=== PATIENT | female | born 2005 | race Caucasian/White ===

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

== ENCOUNTER 2023-02-04 21:44 | Inpatient (IN) | payer MEDICAID ==
[~2023-02-04] VITALS: Ht 170.2 cm; Wt 81.9 kg
[~2023-02-04 21:44] MED LIST changes: +BENZ0.5T2 PO; -BENZ0.5T23 PO
[2023-02-04 22:21] LABS: HEMATOCRIT 39.1 % (36.0-47.0); HEMOGLOBIN 13.1 g/dl (12.0-15.5); MEAN CORPUSCULAR HGB CONC 33.5 g/dl (32.0-36.5); MEAN CORPUSCULAR VOLUME 89.5 fl (80.0-96.0); PLATELET COUNT, AUTOMATED 361 10^3/uL (150-450); RED BLOOD COUNT 4.37 10^6/uL (4.00-5.40); WHITE BLOOD COUNT 12.4 10^3/uL (4.0-10.0)
[2023-02-04 22:54] LABS: ETHYL ALCOHOL (ETHANOL) < 0.003 % (0.000-0.010)
[2023-02-04 22:56] LABS: ACETAMINOPHEN LEVEL < 2.0 UG/ML (10.0-20.0); ALBUMIN 3.8 G/DL (3.2-5.2); ALKALINE PHOSPHATASE 97 U/L (46-116); ALT/SGPT 17 U/L (7.0-40); AST/SGOT 20 U/L (<34); BILIRUBIN,DIRECT < 0.1 MG/DL (<0.4); BILIRUBIN,TOTAL 0.2 MG/DL (0.3-1.2); BLOOD UREA NITROGEN 11 MG/DL (9-23); CARBON DIOXIDE LEVEL 24 MMOL/L (20-31); CHLORIDE LEVEL 107 MMOL/L (98-107); CREATININE FOR GFR 0.86 MG/DL (0.55-1.30); GLUCOSE, FASTING 84 MG/DL (60-100); POTASSIUM SERUM 4.2 MMOL/L (3.5-5.1); SALICYLATE LEVEL < 3.0 MG/DL (<30); SODIUM LEVEL 137 MMOL/L (136-145); TOTAL PROTEIN 7.8 G/DL (5.7-8.2)
[2023-02-04 22:59] LABS: THYROID STIMULATING HORMONE 2.979 uIU/ML (0.48-4.17)
[2023-02-04 23:04] LABS: HCG, SERUM QUALITATIVE NEGATIVE (NEGATIVE)
[2023-02-04 23:12] LABS: AMPHETAMINES LEVEL URINE NEGATIVE (NEGATIVE); BARBITURATES URINE NEGATIVE (NEGATIVE); BENZODIAZEPINES URINE NEGATIVE (NEGATIVE); CANNABINOIDS URINE POSITIVE (NEGATIVE); COCAINE METABOLITE URINE NEGATIVE (NEGATIVE); METHADONE URINE NEGATIVE (NEGATIVE); OPIATES URINE NEGATIVE (NEGATIVE); PHENCYCLIDINE URINE NEGATIVE (NEGATIVE)
[2023-02-04] MEDS ORDERED: GABA-1171 PO (23:28)
[2023-02-04] MEDS ORDERED: OLAN20TA14 PO (23:28)
[2023-02-04] MEDS ORDERED: D 101000 PO (23:28)
[2023-02-04] MEDS ORDERED: TRAZ1TAB14 PO (23:28)
[2023-02-04] MEDS ORDERED: HOME MED LIST COMPLETE! XX SCH (23:35)
[2023-02-05] MEDS ORDERED: IBUPROFEN 400MG TAB PO PRN (05:00)
[2023-02-05] MEDS ORDERED: traZODone 50 MG TAB PO PRN (05:00)
[2023-02-05] MEDS ORDERED: MOM 30ML SUSPENSION UDC PO PRN (05:00)
[2023-02-05] MEDS ORDERED: diphenhydrAMINE 25MG CAP PO PRN (05:00)
[2023-02-05] MEDS ORDERED: ACETAMINOPHEN TAB 650MG DOSE (2X325MG) PO PRN (05:00)
[2023-02-05] MEDS ORDERED: MAALOX 30 ML SUSP *UDC PO PRN (05:00)
[2023-02-05] MEDS: busPIRone 10 MG TAB PO SCH ×3 (11:48→21:23)
[2023-02-05] MEDS: VENLAFAXINE **XR** 75MG CAPSULE PO SCH (11:49)
[2023-02-05] MEDS: OLANZapine 10 MG TAB PO SCH ×2 (11:49→21:23)
[2023-02-05] MEDS: GABAPENTIN 300 MG CAP PO SCH (14:57)
[2023-02-05] MEDS: NICOTINE 21MG/24HR 1 EA TRANSDERMAL TD PRN (16:04)
[2023-02-05 18:00] VITALS: BP 136/90
[2023-02-05] MEDS: traZODone 25MG PER 1/2 TABLET PO SCH (21:23)
[2023-02-05] MEDS: traZODone 50 MG TAB PO SCH (21:23)
[2023-02-05] MEDS: GABAPENTIN 100 MG CAP PO SCH (21:23)
[2023-02-06 06:14] VITALS: BP 135/79
[2023-02-06] MEDS: GABAPENTIN 100 MG CAP PO SCH ×2 (09:09→21:56)
[2023-02-06] MEDS: busPIRone 10 MG TAB PO SCH ×3 (09:09→21:56)
[2023-02-06] MEDS: OLANZapine 10 MG TAB PO SCH ×2 (09:09→21:56)
[2023-02-06] MEDS: VENLAFAXINE **XR** 75MG CAPSULE PO SCH (09:09)
[2023-02-06] MEDS: GABAPENTIN 300 MG CAP PO SCH (13:31)
[2023-02-06] MEDS: NICOTINE 21MG/24HR 1 EA TRANSDERMAL TD PRN (13:36)
[2023-02-06 19:17] VITALS: BP 122/78
[2023-02-06] MEDS: traZODone 25MG PER 1/2 TABLET PO SCH (21:56)
[2023-02-06] MEDS: traZODone 50 MG TAB PO SCH (21:56)
[2023-02-07 07:15] VITALS: BP 144/68
[2023-02-07] MEDS: VENLAFAXINE **XR** 75MG CAPSULE PO SCH (09:25)
[2023-02-07] MEDS: busPIRone 10 MG TAB PO SCH ×3 (09:25→22:08)
[2023-02-07] MEDS: CETIRIZINE (ZyrTEC) 10 MG TAB PO SCH (09:25)
[2023-02-07] MEDS: GABAPENTIN 100 MG CAP PO SCH ×2 (09:25→22:08)
[2023-02-07] MEDS: OLANZapine 10 MG TAB PO SCH ×2 (09:26→22:08)
[2023-02-07] MEDS: GABAPENTIN 300 MG CAP PO SCH (13:41)
[2023-02-07] MEDS: NICOTINE 21MG/24HR 1 EA TRANSDERMAL TD PRN (13:42)
[2023-02-07 16:51] VITALS: BP 137/65
[2023-02-07] MEDS: traZODone 25MG PER 1/2 TABLET PO SCH (22:08)
[2023-02-07] MEDS: traZODone 50 MG TAB PO SCH (22:09)
[2023-02-08 06:50] VITALS: BP 133/87
[2023-02-08] MEDS: OLANZapine 10 MG TAB PO SCH ×2 (09:01→21:39)
[2023-02-08] MEDS: VENLAFAXINE **XR** 75MG CAPSULE PO SCH (09:01)
[2023-02-08] MEDS: busPIRone 10 MG TAB PO SCH ×3 (09:02→21:38)
[2023-02-08] MEDS: CETIRIZINE (ZyrTEC) 10 MG TAB PO SCH (09:02)
[2023-02-08] MEDS: GABAPENTIN 100 MG CAP PO SCH ×2 (09:02→21:39)
[2023-02-08] MEDS: GABAPENTIN 300 MG CAP PO SCH (14:05)
[2023-02-08] MEDS: NICOTINE 21MG/24HR 1 EA TRANSDERMAL TD PRN (14:09)
[2023-02-08 16:42] VITALS: BP 132/82
[2023-02-08] MEDS: traZODone 100 MG TAB PO SCH (21:38)
[2023-02-09 06:23] VITALS: BP 140/78
[2023-02-09] MEDS: GABAPENTIN 100 MG CAP PO SCH ×2 (09:10→21:36)
[2023-02-09] MEDS: CETIRIZINE (ZyrTEC) 10 MG TAB PO SCH (09:10)
[2023-02-09] MEDS: VENLAFAXINE **XR** 75MG CAPSULE PO SCH (09:10)
[2023-02-09] MEDS: busPIRone 10 MG TAB PO SCH ×3 (09:10→21:36)
[2023-02-09] MEDS: OLANZapine 10 MG TAB PO SCH ×2 (09:10→21:36)
[2023-02-09] MEDS: GABAPENTIN 300 MG CAP PO SCH (13:47)
[2023-02-09] MEDS: NICOTINE 21MG/24HR 1 EA TRANSDERMAL TD PRN (13:48)
[2023-02-09 16:24] VITALS: BP 132/79
[2023-02-09] MEDS: traZODone 100 MG TAB PO SCH (21:36)
[2023-02-10 06:42] VITALS: BP 123/81
[2023-02-10] MEDS: VENLAFAXINE **XR** 75MG CAPSULE PO SCH (09:21)
[2023-02-10] MEDS: busPIRone 10 MG TAB PO SCH ×3 (09:21→21:03)
[2023-02-10] MEDS: GABAPENTIN 100 MG CAP PO SCH ×2 (09:22→21:04)
[2023-02-10] MEDS: CETIRIZINE (ZyrTEC) 10 MG TAB PO SCH (09:22)
[2023-02-10] MEDS: OLANZapine 10 MG TAB PO SCH ×2 (09:22→21:03)
[2023-02-10] MEDS: NICOTINE 21MG/24HR 1 EA TRANSDERMAL TD PRN (09:25)
[2023-02-10] MEDS: GABAPENTIN 300 MG CAP PO SCH (14:43)
[2023-02-10 18:23] VITALS: BP 120/78
[2023-02-10] MEDS: traZODone 100 MG TAB PO SCH (21:04)
[2023-02-11 06:28] VITALS: BP 118/64
[2023-02-11] MEDS ORDERED: HYDR-3363 PO (07:30)
[2023-02-11] MEDS ORDERED: CETI10TA PO (07:30)
[2023-02-11] MEDS ORDERED: TRAZ-257 PO (07:30)
[2023-02-11] MEDS: CETIRIZINE (ZyrTEC) 10 MG TAB PO SCH (08:43)
[2023-02-11] MEDS: busPIRone 10 MG TAB PO SCH (08:43)
[2023-02-11] MEDS: GABAPENTIN 100 MG CAP PO SCH (08:43)
[2023-02-11] MEDS: OLANZapine 10 MG TAB PO SCH (08:43)
[2023-02-11] MEDS: VENLAFAXINE **XR** 75MG CAPSULE PO SCH (08:43)
[2023-02-11] MEDS: NICOTINE 21MG/24HR 1 EA TRANSDERMAL TD PRN (09:45)
== END 2023-02-11 12:38 | disposition home or self-care (01) | DRG 754 ==
LOC: M ED 21:44 → M ED INP 02-05 04:57 → M PSY 02-05 05:42
PROVIDERS: ADMIT Student in an Organized Health Care Education/Training Program; ATTEND Psychiatry & Neurology Child & Adolescent Psychiatry
DX: F32.9 Major depressive disorder, single episode, unspecified (principal); F41.9 Anxiety disorder, unspecified; F60.3 Borderline personality disorder; Z91.52 Personal history of nonsuicidal self-harm; Z79.899 Other long term (current) drug therapy; Z88.8 Allergy status to other drugs, medicaments and biological substances; Z63.8 Other specified problems related to primary support group; Z91.51 Personal history of suicidal behavior

== ENCOUNTER → 2023-02-17 | Outpatient (REF) | payer MEDICAID ==
[~2023-02-17] MED LIST changes: +CETI10TA PO; +D 101000 PO; +HYDR-3363 PO; +OLAN20TA14 PO
[2023-02-17 18:52] LABS: GC DNA AMPLIFICATION NEGATIVE (NEGATIVE)
== END ==
LOC: M LAB REF 17:01
PROVIDERS: ATTEND Pediatrics
DX: N92.6 Irregular menstruation, unspecified (principal)

== ENCOUNTER 2023-02-24 21:47 | Inpatient (IN) | payer MEDICAID ==
[~2023-02-24] VITALS: Ht 170.2 cm; Wt 78.1 kg
[2023-02-24 22:47] LABS: HEMATOCRIT 37.3 % (36.0-47.0); HEMOGLOBIN 12.4 g/dl (12.0-15.5); MEAN CORPUSCULAR HEMOGLOBIN 29.9 pg (27.0-33.0); MEAN CORPUSCULAR HGB CONC 33.2 g/dl (32.0-36.5); MEAN CORPUSCULAR VOLUME 89.9 fl (80.0-96.0); PLATELET COUNT, AUTOMATED 396 10^3/uL (150-450); RED BLOOD COUNT 4.15 10^6/uL (4.00-5.40); WHITE BLOOD COUNT 10.2 10^3/uL (4.0-10.0)
[2023-02-24 22:50] LABS: ETHYL ALCOHOL (ETHANOL) < 0.003 % (0.000-0.010)
[2023-02-24 22:51] LABS: ACETAMINOPHEN LEVEL < 2.0 UG/ML (10.0-20.0); SALICYLATE LEVEL < 3.0 MG/DL (<30)
[2023-02-24 22:52] LABS: ALBUMIN 3.9 G/DL (3.2-5.2); ALKALINE PHOSPHATASE 98 U/L (46-116); ALT/SGPT 14 U/L (7.0-40); AST/SGOT 19 U/L (<34); BILIRUBIN,DIRECT < 0.1 MG/DL (<0.4); BILIRUBIN,TOTAL 0.2 MG/DL (0.3-1.2); BLOOD UREA NITROGEN 6 MG/DL (9-23); CALCIUM LEVEL 8.6 MG/DL (8.5-10.1); CARBON DIOXIDE LEVEL 23 MMOL/L (20-31); CHLORIDE LEVEL 110 MMOL/L (98-107); CREATININE FOR GFR 0.91 MG/DL (0.55-1.30); GLUCOSE, FASTING 72 MG/DL (60-100); POTASSIUM SERUM 4.5 MMOL/L (3.5-5.1); SODIUM LEVEL 140 MMOL/L (136-145); TOTAL PROTEIN 7.7 G/DL (5.7-8.2)
[2023-02-24 22:53] LABS: BARBITURATES URINE NEGATIVE (NEGATIVE); COCAINE METABOLITE URINE NEGATIVE (NEGATIVE); METHADONE URINE NEGATIVE (NEGATIVE); OPIATES URINE NEGATIVE (NEGATIVE); PHENCYCLIDINE URINE NEGATIVE (NEGATIVE)
[2023-02-24 22:54] LABS: AMPHETAMINES LEVEL URINE NEGATIVE (NEGATIVE); BENZODIAZEPINES URINE NEGATIVE (NEGATIVE); CANNABINOIDS URINE POSITIVE (NEGATIVE); THYROID STIMULATING HORMONE 1.589 uIU/ML (0.48-4.17)
[2023-02-24 22:57] LABS: HCG, SERUM QUALITATIVE NEGATIVE (NEGATIVE)
[2023-02-24] MEDS ORDERED: TRAZ-189 PO (23:00)
[2023-02-24] MEDS ORDERED: ALBU8.5H INH (23:00)
[2023-02-24] MEDS ORDERED: ALBU2.5V10 INH (23:00)
[2023-02-24] MEDS ORDERED: CETI-24 PO (23:00)
[2023-02-24] MEDS ORDERED: HYDR-3363 PO (23:00)
[2023-02-24] MEDS ORDERED: SETL1TAB PO (23:00)
[2023-02-24] MEDS ORDERED: HOME MED LIST COMPLETE! XX SCH (23:05)
[2023-02-25] MEDS ORDERED: diphenhydrAMINE 25MG CAP PO PRN (06:25)
[2023-02-25] MEDS ORDERED: ALBUTEROL 90 MCG/ACT 8GM HFA INHALER INH PRN (06:25)
[2023-02-25] MEDS ORDERED: MOM 30ML SUSPENSION UDC PO PRN (06:25)
[2023-02-25] MEDS ORDERED: IBUPROFEN 400MG TAB PO PRN (06:25)
[2023-02-25] MEDS ORDERED: MAALOX 30 ML SUSP *UDC PO PRN (06:25)
[2023-02-25] MEDS ORDERED: ACETAMINOPHEN TAB 650MG DOSE (2X325MG) PO PRN (06:25)
[2023-02-25] MEDS: busPIRone 10 MG TAB PO SCH ×3 (09:00→21:33)
[2023-02-25] MEDS: NICOTINE 21MG/24HR 1 EA TRANSDERMAL TD SCH (09:00)
[2023-02-25] MEDS: GABAPENTIN 100 MG CAP PO SCH ×2 (09:00→21:33)
[2023-02-25 12:09] VITALS: BP 127/77; TEMP 97.1; O2SAT 97
[2023-02-25] MEDS: VENLAFAXINE **XR** 75MG CAPSULE PO SCH (13:11)
[2023-02-25] MEDS: CETIRIZINE (ZyrTEC) 10 MG TAB PO SCH (13:11)
[2023-02-25] MEDS: GABAPENTIN 300 MG CAP PO SCH (13:11)
[2023-02-25] MEDS: VITAMIN D 1,000 INTERNATIONAL UNITS TABLET PO SCH (13:11)
[2023-02-25] MEDS: OLANZapine 10 MG TAB PO SCH ×2 (13:11→21:33)
[2023-02-25 16:56] VITALS: BP 126/65; TEMP 98.1; O2SAT 99
[2023-02-25] MEDS: traZODone 100 MG TAB PO SCH (21:33)
[2023-02-26 06:33] VITALS: BP 111/66; TEMP 96.8; O2SAT 97
[2023-02-26] MEDS: CETIRIZINE (ZyrTEC) 10 MG TAB PO SCH (09:21)
[2023-02-26] MEDS: GABAPENTIN 100 MG CAP PO SCH ×2 (09:21→21:21)
[2023-02-26] MEDS: OLANZapine 10 MG TAB PO SCH ×2 (09:21→21:21)
[2023-02-26] MEDS: VENLAFAXINE **XR** 75MG CAPSULE PO SCH (09:21)
[2023-02-26] MEDS: VITAMIN D 1,000 INTERNATIONAL UNITS TABLET PO SCH (09:21)
[2023-02-26] MEDS: busPIRone 10 MG TAB PO SCH ×3 (09:21→21:20)
[2023-02-26] MEDS: NICOTINE 21MG/24HR 1 EA TRANSDERMAL TD SCH (09:23)
[2023-02-26] MEDS: GABAPENTIN 300 MG CAP PO SCH (13:39)
[2023-02-26 16:15] VITALS: BP 135/67; TEMP 97.3; O2SAT 96
[2023-02-26] MEDS: traZODone 100 MG TAB PO SCH (21:20)
[2023-02-27 06:46] VITALS: BP 120/72; TEMP 98.4; O2SAT 100
[2023-02-27] MEDS: VENLAFAXINE **XR** 75MG CAPSULE PO SCH (09:12)
[2023-02-27] MEDS: NICOTINE 21MG/24HR 1 EA TRANSDERMAL TD SCH (09:12)
[2023-02-27] MEDS: OLANZapine 10 MG TAB PO SCH ×2 (09:12→20:26)
[2023-02-27] MEDS: GABAPENTIN 100 MG CAP PO SCH ×2 (09:12→20:27)
[2023-02-27] MEDS: CETIRIZINE (ZyrTEC) 10 MG TAB PO SCH (09:12)
[2023-02-27] MEDS: busPIRone 10 MG TAB PO SCH ×3 (09:12→20:26)
[2023-02-27] MEDS: VITAMIN D 1,000 INTERNATIONAL UNITS TABLET PO SCH (09:12)
[2023-02-27] MEDS: GABAPENTIN 300 MG CAP PO SCH (14:00)
[2023-02-27 16:14] VITALS: BP 117/70; TEMP 97.9; O2SAT 97
[2023-02-27] MEDS: LITHIUM CARBONATE 150 MG CAP PO SCH (20:27)
[2023-02-27] MEDS: NEOSPORIN TOP OINT 15GM TOP SCH (20:27)
[2023-02-27] MEDS: traZODone 100 MG TAB PO SCH (20:27)
[2023-02-28 06:25] VITALS: BP 114/62; TEMP 98.4; O2SAT 99
[2023-02-28] MEDS: OLANZapine 10 MG TAB PO SCH ×2 (08:47→20:43)
[2023-02-28] MEDS: VENLAFAXINE **XR** 75MG CAPSULE PO SCH (08:47)
[2023-02-28] MEDS: busPIRone 10 MG TAB PO SCH ×3 (08:47→20:43)
[2023-02-28] MEDS: CETIRIZINE (ZyrTEC) 10 MG TAB PO SCH (08:47)
[2023-02-28] MEDS: VITAMIN D 1,000 INTERNATIONAL UNITS TABLET PO SCH (08:47)
[2023-02-28] MEDS: GABAPENTIN 100 MG CAP PO SCH ×2 (08:47→20:44)
[2023-02-28] MEDS: NICOTINE 21MG/24HR 1 EA TRANSDERMAL TD SCH (08:47)
[2023-02-28] MEDS: NEOSPORIN TOP OINT 15GM TOP SCH ×2 (08:49→20:43)
[2023-02-28] MEDS: GABAPENTIN 300 MG CAP PO SCH (14:32)
[2023-02-28 18:00] VITALS: BP 144/86; TEMP 96.3; O2SAT 100
[2023-02-28] MEDS: LITHIUM CARBONATE 150 MG CAP PO SCH (20:44)
[2023-02-28] MEDS: traZODone 100 MG TAB PO SCH (20:44)
[2023-03-01 05:58] VITALS: BP 139/75; TEMP 98.6; O2SAT 96
[2023-03-01] MEDS: CETIRIZINE (ZyrTEC) 10 MG TAB PO SCH (08:51)
[2023-03-01] MEDS: busPIRone 10 MG TAB PO SCH ×3 (08:51→21:19)
[2023-03-01] MEDS: GABAPENTIN 100 MG CAP PO SCH ×2 (08:51→21:17)
[2023-03-01] MEDS: VITAMIN D 1,000 INTERNATIONAL UNITS TABLET PO SCH (08:52)
[2023-03-01] MEDS: VENLAFAXINE **XR** 75MG CAPSULE PO SCH (08:53)
[2023-03-01] MEDS: NEOSPORIN TOP OINT 15GM TOP SCH ×2 (08:55→21:17)
[2023-03-01] MEDS: NICOTINE 21MG/24HR 1 EA TRANSDERMAL TD SCH (08:55)
[2023-03-01] MEDS ORDERED: PILL CUTTER 1 EACH XX PRN (11:15)
[2023-03-01] MEDS: GABAPENTIN 300 MG CAP PO SCH (14:31)
[2023-03-01 17:48] VITALS: BP 150/86; TEMP 97.6
[2023-03-01] MEDS: OLANZapine 10 MG TAB PO SCH (21:17)
[2023-03-01] MEDS: traZODone 100 MG TAB PO SCH (21:18)
[2023-03-01] MEDS: LITHIUM CARBONATE 300 MG CAP PO SCH (21:19)
[2023-03-01 21:25] VITALS: BP 116/71
[2023-03-02 06:06] VITALS: BP 138/72; TEMP 98.8; O2SAT 97
[2023-03-02] MEDS: NEOSPORIN TOP OINT 15GM TOP SCH ×3 (09:00→20:19)
[2023-03-02] MEDS: VENLAFAXINE **XR** 75MG CAPSULE PO SCH (09:04)
[2023-03-02] MEDS: GABAPENTIN 100 MG CAP PO SCH ×2 (09:04→20:45)
[2023-03-02] MEDS: VITAMIN D 1,000 INTERNATIONAL UNITS TABLET PO SCH (09:04)
[2023-03-02] MEDS: CETIRIZINE (ZyrTEC) 10 MG TAB PO SCH (09:05)
[2023-03-02] MEDS: busPIRone 10 MG TAB PO SCH ×3 (09:05→20:45)
[2023-03-02] MEDS: NICOTINE 21MG/24HR 1 EA TRANSDERMAL TD SCH (09:06)
[2023-03-02] MEDS: GABAPENTIN 300 MG CAP PO SCH (14:47)
[2023-03-02 18:07] VITALS: BP 130/78; TEMP 97.8
[2023-03-02] MEDS: LITHIUM CARBONATE 300 MG CAP PO SCH (20:46)
[2023-03-02] MEDS: traZODone 100 MG TAB PO SCH (20:46)
[2023-03-02] MEDS: OLANZapine 10 MG TAB PO SCH (20:46)
[2023-03-03 06:44] VITALS: BP 129/75; TEMP 96.5; O2SAT 99
[2023-03-03] MEDS ORDERED: TRAZ-257 PO (08:40)
[2023-03-03] MEDS ORDERED: NICO21PAT TD (08:40)
[2023-03-03] MEDS ORDERED: GABA-1171 PO (08:40)
[2023-03-03] MEDS ORDERED: BUSP30TA PO (08:40)
[2023-03-03] MEDS ORDERED: NEOM28OI TOP (08:40)
[2023-03-03] MEDS ORDERED: ZYPR20TA PO (08:40)
[2023-03-03] MEDS ORDERED: LITH300C PO (08:40)
[2023-03-03] MEDS ORDERED: VENL150C43 PO (08:40)
[2023-03-03] MEDS: NEOSPORIN TOP OINT 15GM TOP SCH (09:00)
[2023-03-03] MEDS: NICOTINE 21MG/24HR 1 EA TRANSDERMAL TD SCH (09:00)
[2023-03-03] MEDS: VITAMIN D 1,000 INTERNATIONAL UNITS TABLET PO SCH (09:59)
[2023-03-03] MEDS: busPIRone 10 MG TAB PO SCH (10:00)
[2023-03-03] MEDS: CETIRIZINE (ZyrTEC) 10 MG TAB PO SCH (10:00)
[2023-03-03] MEDS: GABAPENTIN 100 MG CAP PO SCH (10:01)
[2023-03-03] MEDS: VENLAFAXINE **XR** 75MG CAPSULE PO SCH (10:01)
== END 2023-03-03 12:37 | disposition home or self-care (01) | DRG 753 ==
LOC: M ED 21:47 → M ED INP 02-25 06:25 → M PSY 02-25 12:21
PROVIDERS: ADMIT Psychiatry & Neurology Psychiatry; ATTEND Student in an Organized Health Care Education/Training Program
DX: F32.89 Other specified depressive episodes (principal); R45.851 Suicidal ideations; F60.3 Borderline personality disorder; Z91.51 Personal history of suicidal behavior; Z56.0 Unemployment, unspecified; F12.10 Cannabis abuse, uncomplicated; Z79.899 Other long term (current) drug therapy; Z88.8 Allergy status to other drugs, medicaments and biological substances; J45.909 Unspecified asthma, uncomplicated; Z91.52 Personal history of nonsuicidal self-harm

== ENCOUNTER 2023-03-06 19:37 | Inpatient (IN) | payer MEDICAID ==
[~2023-03-06] VITALS: Ht 170.2 cm; Wt 83.9 kg
[~2023-03-06 19:37] MED LIST changes: +ALBU2.5V10 INH; +LITH300C PO; +NEOM28OI TOP; +SETL1TAB PO; +TRAZ-189 PO; +ZYPR20TA PO
[2023-03-06 20:14] LABS: HEMATOCRIT 37.6 % (36.0-47.0); HEMOGLOBIN 12.4 g/dl (12.0-15.5); MEAN CORPUSCULAR HEMOGLOBIN 29.9 pg (27.0-33.0); MEAN CORPUSCULAR VOLUME 90.6 fl (80.0-96.0); PLATELET COUNT, AUTOMATED 357 10^3/uL (150-450); RED BLOOD COUNT 4.15 10^6/uL (4.00-5.40); WHITE BLOOD COUNT 11.6 10^3/uL (4.0-10.0)
[2023-03-06 20:43] LABS: ETHYL ALCOHOL (ETHANOL) < 0.003 % (0.000-0.010)
[2023-03-06 20:45] LABS: ACETAMINOPHEN LEVEL < 2.0 UG/ML (10.0-20.0); ALBUMIN 3.6 G/DL (3.2-5.2); ALKALINE PHOSPHATASE 98 U/L (46-116); ALT/SGPT 15 U/L (7.0-40); AST/SGOT < 8 U/L (<34); BILIRUBIN,DIRECT < 0.1 MG/DL (<0.4); BILIRUBIN,TOTAL < 0.2 MG/DL (0.3-1.2); BLOOD UREA NITROGEN 10 MG/DL (9-23); CALCIUM LEVEL 8.8 MG/DL (8.5-10.1); CARBON DIOXIDE LEVEL 27 MMOL/L (20-31); CHLORIDE LEVEL 109 MMOL/L (98-107); CREATININE FOR GFR 0.91 MG/DL (0.55-1.30); GLUCOSE, FASTING 90 MG/DL (60-100); POTASSIUM SERUM 3.8 MMOL/L (3.5-5.1); SALICYLATE LEVEL < 3.0 MG/DL (<30); SODIUM LEVEL 142 MMOL/L (136-145)
[2023-03-06 20:47] LABS: THYROID STIMULATING HORMONE 2.206 uIU/ML (0.48-4.17)
[2023-03-06 20:48] LABS: HCG, SERUM QUALITATIVE NEGATIVE (NEGATIVE)
[2023-03-06 20:53] LABS: PHENCYCLIDINE URINE NEGATIVE (NEGATIVE)
[2023-03-06 20:54] LABS: AMPHETAMINES LEVEL URINE NEGATIVE (NEGATIVE); BARBITURATES URINE NEGATIVE (NEGATIVE); BENZODIAZEPINES URINE NEGATIVE (NEGATIVE); COCAINE METABOLITE URINE NEGATIVE (NEGATIVE); METHADONE URINE NEGATIVE (NEGATIVE); OPIATES URINE NEGATIVE (NEGATIVE)
[2023-03-06 20:58] LABS: CANNABINOIDS URINE POSITIVE (NEGATIVE)
[2023-03-06] MEDS ORDERED: traZODone 50 MG TAB PO SCH (21:00)
[2023-03-06] MEDS ORDERED: OLANZapine 10 MG TAB PO SCH (21:00)
[2023-03-06] MEDS: GABAPENTIN 100 MG CAP PO SCH (21:00)
[2023-03-06] MEDS ORDERED: LITHIUM CARBONATE 300 MG CAP PO SCH (21:00)
[2023-03-06] MEDS ORDERED: GABA-1171 PO (21:45)
[2023-03-06] MEDS ORDERED: OLAN20TA14 PO (21:45)
[2023-03-06] MEDS ORDERED: TRAZ-257 PO (21:45)
[2023-03-06] MEDS ORDERED: HOME MED LIST COMPLETE! XX SCH (21:45)
[2023-03-06] MEDS ORDERED: LITH300C PO (21:45)
[2023-03-06] MEDS ORDERED: VENL150C43 PO (21:45)
[2023-03-06] MEDS ORDERED: BUSP30TA PO (21:45)
[2023-03-07] MEDS: GABAPENTIN 100 MG CAP PO SCH ×2 (08:27→20:57)
[2023-03-07] MEDS ORDERED: CETIRIZINE (ZyrTEC) 10 MG TAB PO SCH (09:00)
[2023-03-07] MEDS ORDERED: busPIRone 10 MG TAB PO SCH (09:00)
[2023-03-07] MEDS ORDERED: VENLAFAXINE **XR** 75MG CAPSULE PO SCH ×2 (09:00)
[2023-03-07] MEDS ORDERED: diphenhydrAMINE 25MG CAP PO PRN (12:35)
[2023-03-07] MEDS ORDERED: MAALOX 30 ML SUSP *UDC PO PRN (12:35)
[2023-03-07] MEDS ORDERED: ALBUTEROL 90 MCG/ACT 8GM HFA INHALER INH PRN (12:35)
[2023-03-07] MEDS ORDERED: ACETAMINOPHEN TAB 650MG DOSE (2X325MG) PO PRN (12:35)
[2023-03-07] MEDS ORDERED: MOM 30ML SUSPENSION UDC PO PRN (12:35)
[2023-03-07] MEDS ORDERED: IBUPROFEN 400MG TAB PO PRN (12:35)
[2023-03-07] MEDS ORDERED: GABAPENTIN 300 MG CAP PO SCH ×2 (14:00)
[2023-03-07 14:29] VITALS: BP 132/77; TEMP 97.1; O2SAT 97
[2023-03-07] MEDS: busPIRone 10 MG TAB PO SCH ×2 (15:28→20:57)
[2023-03-07] MEDS ORDERED: LITHIUM CARBONATE 300 MG CAP PO SCH (21:00)
[2023-03-07] MEDS ORDERED: OLANZapine 10 MG TAB PO SCH (21:00)
[2023-03-07] MEDS ORDERED: traZODone 50 MG TAB PO SCH (21:00)
[2023-03-08 06:51] VITALS: BP 100/59; TEMP 97.7; O2SAT 97
[2023-03-08] MEDS ORDERED: VENLAFAXINE **XR** 75MG CAPSULE PO SCH (09:00)
[2023-03-08] MEDS ORDERED: BACITRACIN OINTMENT 30GM TUBE TOP SCH (09:00)
[2023-03-08] MEDS: GABAPENTIN 100 MG CAP PO SCH (09:16)
[2023-03-08] MEDS: busPIRone 10 MG TAB PO SCH (09:17)
== END 2023-03-08 11:37 | disposition home or self-care (01) | DRG 755 ==
LOC: M ED 19:37 → M ED INP 03-07 12:34 → M PSY 03-07 13:47
PROVIDERS: ADMIT Psychiatry & Neurology Psychiatry; ATTEND Student in an Organized Health Care Education/Training Program
DX: F43.20 Adjustment disorder, unspecified (principal); F12.90 Cannabis use, unspecified, uncomplicated; F60.3 Borderline personality disorder; R45.851 Suicidal ideations; Z79.899 Other long term (current) drug therapy; Z88.8 Allergy status to other drugs, medicaments and biological substances

== ENCOUNTER → 2023-06-01 | Outpatient (CLI) | payer OTHER ==
[~2023-06-01] MED LIST changes: +DICY-61 PO; -DICY10CA13 PO; +OLAN15TA13; +OLAN15TA13 PO; +VENL75CA2 PO
== END ==
LOC: M WHC 11:36
PROVIDERS: ATTEND Physician Assistant
DX: N63.10 Unspecified lump in the right breast, unspecified quadrant (principal); Z80.41 Family history of malignant neoplasm of ovary; Z80.43 Family history of malignant neoplasm of testis

== ENCOUNTER → 2023-07-21 | Outpatient (CLI) | payer OTHER | LOC: M WHC 15:09 | PROVIDERS: ATTEND Nurse Practitioner Family | DX: R10.2 Pelvic and perineal pain (principal); N83.202 Unspecified ovarian cyst, left side ==

== ENCOUNTER 2023-09-07 13:28 | Emergency (ER) | payer OTHER ==
[~2023-09-07] VITALS: Ht 170.2 cm; Wt 77.4 kg
[2023-09-07 14:42] LABS: BASO # 0.1 10^3/uL (0.0-0.2); BASO % 0.4 % (0.0-1.0); EOS # 0.1 10^3/uL (0.0-0.5); EOS % 0.6 % (0.0-3.0); HEMATOCRIT 38.7 % (36.0-47.0); HEMOGLOBIN 13.1 g/dl (12.0-15.5); LYMPH # 1.5 10^3/uL (1.5-5.0); LYMPH % 9.8 % (24.0-44.0); MEAN CORPUSCULAR HEMOGLOBIN 30.8 pg (27.0-33.0); MEAN CORPUSCULAR HGB CONC 33.9 g/dl (32.0-36.5); MEAN CORPUSCULAR VOLUME 91.1 fl (80.0-96.0); MONO # 0.9 10^3/uL (0.0-0.8); MONO % 5.4 % (2.0-8.0); NEUTROPHILS # 12.9 10^3/uL (1.5-8.5); NEUTROPHILS % 82.4 % (36.0-66.0); PLATELET COUNT, AUTOMATED 403 10^3/uL (150-450); RED BLOOD COUNT 4.25 10^6/uL (4.00-5.40); WHITE BLOOD COUNT 15.7 10^3/uL (4.0-10.0)
[2023-09-07] MEDS ORDERED: ONDANSETRON 4MG 2ML VIAL IV ONE (15:05)
[2023-09-07 15:07] LABS: HCG, SERUM QUALITATIVE NEGATIVE (NEGATIVE)
[2023-09-07 15:09] LABS: BLOOD UREA NITROGEN 13 MG/DL (9-23); CALCIUM LEVEL 8.8 MG/DL (8.5-10.1); CARBON DIOXIDE LEVEL 26 MMOL/L (20-31); CHLORIDE LEVEL 105 MMOL/L (98-107); CREATININE FOR GFR 0.85 MG/DL (0.55-1.30); GLUCOSE, FASTING 85 MG/DL (60-100); LITHIUM LEVEL 0.58 MMOL/L (1.0-1.20); SODIUM LEVEL 135 MMOL/L (136-145)
[2023-09-07] MEDS ORDERED: NS 1,000 ML IV ONE (15:20)
[2023-09-07 18:21] VITALS: BP 129/86; TEMP 99.2; O2SAT 98
== END 2023-09-07 18:25 | disposition home or self-care (01) ==
LOC: M ED 13:28
DX: T50.995A Adverse effect of other drugs, medicaments and biological substances, initial encounter (principal); R51.9 Headache, unspecified; K58.9 Irritable bowel syndrome, unspecified; F31.9 Bipolar disorder, unspecified; F60.3 Borderline personality disorder; F43.10 Post-traumatic stress disorder, unspecified; Z91.048 Other nonmedicinal substance allergy status; Z79.52 Long term (current) use of systemic steroids; Z79.899 Other long term (current) drug therapy
CPT/HCPCS: 71046; 80048; 80178; 81001; 83605; 84703; 85025; 87486; 87581; 87633; 87798; 93005; 96361; 96374; 99284; J2405

== ENCOUNTER → 2024-02-23 | Outpatient (CLI) | payer OTHER ==
[~2024-02-23] MED LIST changes: +FLUO-290 PO; +FLUO-365 PO; -FLUO10CA18 PO; -FLUO20CA22 PO
== END ==
LOC: M PLARAD 14:07
PROVIDERS: ATTEND Physician Assistant Medical
DX: Z87.820 Personal history of traumatic brain injury (principal); R41.3 Other amnesia; G43.909 Migraine, unspecified, not intractable, without status migrainosus

== ENCOUNTER 2024-07-02 18:13 | Inpatient (IN) | payer MEDICAID, OTHER ==
[~2024-07-02] VITALS: Ht 170.2 cm; Wt 62.5 kg
[~2024-07-02 18:13] MED LIST changes: +GABA-1172 PO; -GABA-282 PO; -OLAN15TA13; -OLAN15TA13 PO; +OLAN15TA69; +OLAN15TA69 PO; -OLAN2.5T25 PO; +OLAN2.5T53 PO; -OLAN20TA14 PO; +OLAN20TA53 PO
[2024-07-02 18:53] LABS: HEMATOCRIT 41.6 % (36.0-47.0); MEAN CORPUSCULAR HEMOGLOBIN 31.3 pg (27.0-33.0); MEAN CORPUSCULAR HGB CONC 33.7 g/dl (32.0-36.5); MEAN CORPUSCULAR VOLUME 92.9 fl (80.0-96.0); PLATELET COUNT, AUTOMATED 390 10^3/uL (150-450); RED BLOOD COUNT 4.48 10^6/uL (4.00-5.40); WHITE BLOOD COUNT 10.2 10^3/uL (4.0-10.0)
[2024-07-02 19:26] LABS: ETHYL ALCOHOL (ETHANOL) < 0.003 % (0.000-0.010)
[2024-07-02 19:28] LABS: ALBUMIN 4.6 G/DL (3.2-5.2); ALKALINE PHOSPHATASE 83 U/L (46-116); ALT/SGPT 12 U/L (7.0-40); AST/SGOT < 8 U/L (<34); BILIRUBIN,DIRECT 0.2 MG/DL (<0.4); BILIRUBIN,TOTAL 0.5 MG/DL (0.3-1.2); BLOOD UREA NITROGEN 9 MG/DL (9-23); CARBON DIOXIDE LEVEL 26 MMOL/L (20-31); CHLORIDE LEVEL 108 MMOL/L (98-107); CREATININE FOR GFR 0.83 MG/DL (0.55-1.30); GLOMERULAR FILTRATION RATE > 60.0 (>60); GLUCOSE, FASTING 88 MG/DL (60-100); POTASSIUM SERUM 3.8 MMOL/L (3.5-5.1); SALICYLATE LEVEL < 3.0 MG/DL (<30); SODIUM LEVEL 139 MMOL/L (136-145); TOTAL PROTEIN 8.3 G/DL (5.7-8.2)
[2024-07-02 19:30] LABS: THYROID STIMULATING HORMONE 1.953 uIU/ML (0.55-4.78)
[2024-07-02 19:31] LABS: HCG, SERUM QUALITATIVE NEGATIVE (NEGATIVE)
[2024-07-02 19:32] LABS: LITHIUM LEVEL 0.47 MMOL/L (1.0-1.20)
[2024-07-02 20:24] LABS: AMPHETAMINES LEVEL URINE NEGATIVE (NEGATIVE); BARBITURATES URINE NEGATIVE (NEGATIVE); BENZODIAZEPINES URINE NEGATIVE (NEGATIVE); COCAINE METABOLITE URINE NEGATIVE (NEGATIVE); METHADONE URINE NEGATIVE (NEGATIVE); OPIATES URINE NEGATIVE (NEGATIVE); PHENCYCLIDINE URINE NEGATIVE (NEGATIVE)
[2024-07-02 20:25] LABS: CANNABINOIDS URINE POSITIVE (NEGATIVE)
[2024-07-02] MEDS ORDERED: traZODone 50 MG TAB PO PRN (20:45)
[2024-07-02] MEDS ORDERED: IBUPROFEN 400MG TAB PO PRN (20:45)
[2024-07-02] MEDS ORDERED: MAALOX 30 ML SUSP *UDC PO PRN (20:45)
[2024-07-02] MEDS ORDERED: MOM 30ML SUSPENSION UDC PO PRN (20:45)
[2024-07-02] MEDS ORDERED: diphenhydrAMINE 25MG CAP PO PRN (20:45)
[2024-07-02] MEDS ORDERED: LITH600C PO (20:49)
[2024-07-02] MEDS ORDERED: MIRT1TAB PO (20:49)
[2024-07-02] MEDS ORDERED: SERO400T PO (20:49)
[2024-07-02] MEDS ORDERED: HOME MED LIST COMPLETE! XX SCH (20:50)
[2024-07-02] MEDS: ACETAMINOPHEN TAB 650MG DOSE (2X325MG) PO PRN (23:23)
[2024-07-03] MEDS: QUEtiapine FUMARATE 200 MG TAB PO ONE (00:05)
[2024-07-03] MEDS: LITHIUM CARBONATE 600MG CAP PO ONE (00:05)
[2024-07-03] MEDS: MIRTAZAPINE 7.5MG PER 1/2 TABLET PO ONE (00:05)
[2024-07-03 06:28] VITALS: BP 110/69; TEMP 97.9; O2SAT 99
[2024-07-03 17:05] VITALS: BP 143/80; TEMP 97.1
[2024-07-03] MEDS: MIRTAZAPINE 7.5MG PER 1/2 TABLET PO SCH (20:43)
[2024-07-03] MEDS: QUEtiapine FUMARATE 200 MG TAB PO SCH (20:43)
[2024-07-03] MEDS: LITHIUM CARBONATE 600MG CAP PO SCH (20:43)
[2024-07-04 06:34] VITALS: BP 102/55; TEMP 98.2; O2SAT 97
== END 2024-07-04 11:55 | disposition home or self-care (01) | DRG 753 ==
LOC: M ED 18:13 → M ED INP 20:41 → M PSY 22:28
PROVIDERS: ADMIT Psychiatry & Neurology Psychiatry; ATTEND Psychiatry & Neurology Psychiatry
DX: F31.30 Bipolar disorder, current episode depressed, mild or moderate severity, unspecified (principal); F41.1 Generalized anxiety disorder; R45.851 Suicidal ideations; R45.850 Homicidal ideations; F43.10 Post-traumatic stress disorder, unspecified; J45.909 Unspecified asthma, uncomplicated; R63.0 Anorexia; F90.9 Attention-deficit hyperactivity disorder, unspecified type; F17.290 Nicotine dependence, other tobacco product, uncomplicated; F60.3 Borderline personality disorder; Z91.52 Personal history of nonsuicidal self-harm; Z91.51 Personal history of suicidal behavior; Z79.899 Other long term (current) drug therapy; Z91.048 Other nonmedicinal substance allergy status; Z88.8 Allergy status to other drugs, medicaments and biological substances

== ENCOUNTER → 2025-07-11 | Outpatient (REF) | payer OTHER ==
[~2025-07-11] MED LIST changes: +CAPS42.54 TOP; +CIPR-249 PO; +CIPR500T39; +CLON0.5T2 PO; +DICY20TA20; +DICY20TA20 PO; +LITH600C PO; +METR-265; +METR-265 PO; +MIRT-10 PO; +MIRT1TAB PO; +OLAN20TA74 PO; +ONDA-282; +ONDA-282 PO; +ONDA-83; +SERO400T PO; +SUCR1TAB56; +VENTAER INH; -ZYPR20TA PO
[2025-07-11 12:55] LABS: HIV 1&2 SCREEN NEGATIVE (NEGATIVE)
[2025-07-11 13:03] LABS: HEPATITIS C VIRUS ABY INDEX < 0.02 INDEX (<0.8)
[2025-07-11 13:08] LABS: Trichomonas vaginalis (AMP) NOT DETECTED (NEGATIVE)
[2025-07-11 13:32] LABS: GC DNA AMPLIFICATION NEGATIVE (NEGATIVE)
== END ==
LOC: M SFHCWAGY 10:14
PROVIDERS: ATTEND Nurse Practitioner Family
DX: Z12.4 Encounter for screening for malignant neoplasm of cervix (principal); Z11.3 Encounter for screening for infections with a predominantly sexual mode of transmission; Z73.9 Problem related to life management difficulty, unspecified